=== PATIENT | male | born 1950 | race Caucasian/White ===

== ENCOUNTER 2018-03-29 15:39 | Inpatient (IN) ==
--- NOTE | 2018-03-29 15:55 | Urology History & Physical ---
Date of Encounter: 03/29/18 Time of Encounter: 15:52 Assessment and Plan (1) Hematuria Status: Acute 68-year-old man with a history of gross hematuria after a TURBT. He has an indwelling catheter. We will continue hand irrigation. Hold Coumadin today. I will closely follow his INR. We will maintain good hydration and hand irrigate the catheter as necessary. I will closely follow his blood counts and transfuse as necessary. Qualifiers: Hematuria type: gross Qualified Code(s): R31.0 - Gross hematuria (2) PE (pulmonary thromboembolism) Status: Acute We will hold Coumadin for now. History of Present Illness Chief complaint: hematuria HPI: Mr. Paez is a 68 year old male who was admitted for hematuria. He underwent a TURBT on 03/08/2018. He resumed his Coumadin. He has a history of PE. In the last 3 days he started no worsening hematuria. Today he had large blood clots and came to the urology clinic. I passed a 22-Polish catheter. A large amount of clot was irrigated out. Eventually, the urine did clear. He is still having some light pink colored urine, but no clot with irrigation as noted. He denies any lightheadedness or dizziness. Past Med Surg Social Fam HX - Past Medical History Medical history: non-contributory Psychiatric history: no psych history - Social History Smoking Status: Current every day smoker Smokeless Tobacco Status: No Alcohol use: occasionally Drug use: none Medications and Allergies Alendronate Sodium 70 mg PO MARTINEZ 05/24/16 [History] Atorvastatin Calcium [Lipitor] 20 mg PO HS 05/24/16 [History] Dapagliflozin Propanediol [Farxiga] 5 mg PO DAILY 05/24/16 [History] Folic Acid 1 mg PO DAILY 05/24/16 [History] Glimepiride [Amaryl] 4 mg PO BID 05/24/16 [History] SitaGLIPtin [Januvia] 100 mg PO DAILY 05/24/16 [History] Tamsulosin [Flomax] 0.4 mg PO DAILY 05/24/16 [History] metFORMIN [Glucophage] 1,000 mg PO BIDWM 05/24/16 [History] Cholecalciferol (D-3) [Vitamin D] 1,000 unit PO DAILY 03/08/18 [History] Docusate [Colace] 100 mg PO BID #60 capsule 03/08/18 [Rx] HYDROcodone/Acet 5/325 mg [[place] 5-325 mg] 1 tab PO Q4H PRN 4 Days #15 tab 03/08 [Rx] Multivitamin [One Daily Essential] 1 tab PO DAILY 03/08/18 [History] Warfarin [Coumadin] 7.5 mg PO SUTUTHSA 03/08/18 [History] Warfarin [Coumadin] 10 mg PO MOWEFR 03/08/18 [History] 3 Allergy/AdvReac Type Severity Reaction Status Date / Time No Known Allergies Allergy Verified 03/08/18 07:56 Review of Systems - Constitutional no chills, no fever(s) - EENT Nose, mouth and throat: no dizziness - Cardiovascular no chest pain - Respiratory no dyspnea - Gastrointestinal no nausea, no vomiting - Genitourinary hematuria, no flank pain - Musculoskeletal no back pain - Integumentary no erythema, no rash - Neurological no weakness - Psychiatric no suicidal ideation - Hematologic/Lymphatic no easy bleeding - Allergic/Immunologic no wheezing Exam - General physical appearance Present: well developed, well nourished, no distress - Eyes Absent: icteric - ENT Present: normal nares - Neck Present: trachea midline - Respiratory Present: normal respiratory effort - Cardiovascular Cardiovascular exam IM: RRR - Abdomen Abdomen: Present: soft - Genitourinary normal penis with no external lesions ([address] Cranberry colored urine is noted.) - Integumentary Present: no rash - Neurologic Present: normal coordination - Musculoskeletal Present: normal gait Urology Results - Labs All other labs normal.
[2018-03-29] MEDS ORDERED: Naloxone 0.4 MG/ML INJ IVP PRN ×2 (15:57)
[2018-03-29] MEDS ORDERED: *HR* HYDROcodone/Acet 5/325 mg TABLET PO PRN (15:57)
[2018-03-29] MEDS ORDERED: OXYCODONE Oral CONC 10 MG/0.5 ML ORAL.SYG SL PRN (15:57)
[2018-03-29] MEDS ORDERED: Acetaminophen 325 MG TABLET PO PRN (15:57)
[2018-03-29] MEDS ORDERED: Ondansetron 4 MG/2 ML VIAL IVP PRN (15:57)
[2018-03-29] MEDS ORDERED: D5% in Water 1,000 ML IVC PRN (16:05)
[2018-03-29] MEDS ORDERED: Dextrose Gel 15 GM/37.5 ML TUBE PO PRN ×2 (16:05)
[2018-03-29] MEDS ORDERED: *HR* Dextrose 50 % in Water (Syg) 50 ML SYRINGE IVP PRN (16:05)
[2018-03-29 17:13] LABS: Basophils # 0.1 K/mcL (0.0-0.2); Basophils % 0.3 %; Eosinophils % 0.1 %; Hematocrit 48.9 % (37.5-50.1); Hemoglobin 16.2 g/dL (12.9-16.9); Immature Granulocytes % 0.4 % (0-4); Lymphocytes # 1.3 K/mcL (0.6-4.6); Lymphocytes % 7.3 %; Mean Corpuscular HGB Conc 33.1 g/dL (31.6-35.5); Mean Corpuscular Hemoglobin 29.2 pg (28.0-33.3); Mean Corpuscular Volume 88.3 fL (83.0-100.0); Mean Platelet Volume 9.7 fL (9.4-12.4); Monocytes # 0.5 K/mcL (0.0-1.3); Monocytes % 2.5 %; Neutrophils # 16.2 K/mcL (1.6-8.9); Platelet Count 321 K/mcL (140-400); Red Blood Count 5.54 M/mcL (4.19-5.50); Red Cell Distribution Width 14.4 % (11.5-14.5); Segmented Neutrophils % 89.4 %
[2018-03-29 17:19] LABS: BUN/Creatinine Ratio 16 (6-26); Blood Urea Nitrogen 18 mg/dL (8-23); Calcium 9.9 mg/dL (8.6-10.3); Carbon Dioxide 25 mEq/L (23-29); Chloride 106 mEq/L (98-107); Glucose 194 mg/dL (70-105); Osmolality,Calculated 293 (280-300); Potassium 4.6 mEq/L (3.5-5.1); Sodium 138 mEq/L (136-145); eGFR For African Americans > 60 (> 60); eGFR For Non-African Americans > 60 (> 60)
[2018-03-29 17:22] LABS: INR 2.3; Prothrombin Time 25.7 Seconds (9.4-12.1)
[2018-03-29] MEDS: *HR* Metformin 500 MG TABLET PO SCH (17:47)
[2018-03-29] MEDS: 0.9 % Sodium Chloride 1,000 ML IVC SCH (17:47)
--- NOTE | 2018-03-29 20:13 | Internal Medicine Consult Note ---
Date of Encounter: 03/29/18 Time of Encounter: 20:08 - Assessment and plan (1) Anticoagulant long-term use Current Visit: Yes Status: Acute Assessment and plan: Patient with history of hypercoagulable state on long-term anticoagulation admitted with hematuria We will consult hematology oncology to assist in management (2) Diabetes 1.5, managed as type 2 Current Visit: Yes Status: Chronic Assessment and plan: Chronic we will resume home medication and place on sliding scale (3) HTN (hypertension) Current Visit: Yes Status: Chronic Assessment and plan: Chronic and relatively controlled Qualifiers: Hypertension type: essential hypertension Qualified Code(s): I10 - Essential (primary) hypertension (4) Leukocytosis (leucocytosis) Current Visit: Yes Status: Acute Assessment and plan: Leukocytosis was sent for UA and blood culture Qualifiers: Leukocytosis type: bandemia Qualified Code(s): D72.825 - Bandemia (5) Hematuria Current Visit: No Status: Acute Assessment and plan: Being managed by urology Qualifiers: Hematuria type: gross Qualified Code(s): R31.0 - Gross hematuria (6) PE (pulmonary thromboembolism) Current Visit: No Status: Acute Assessment and plan: Patient on long-term anticoagulation - Time Spent With Patient Total time spent is greater than 50% in coordination of care (as documented) at patient's floor/unit and/or counseling patient: Internal Medicine - CN: HPI - Data of Consult Consult date: 03/29/18 Requesting Physician: Khadar Trujillo, - Consult Narrative Reason for consult: medical management History of present illness: Mr. Paez is a 68 year old male Patient with history of hypertension, hypercoagulable state, on long-term Coumadin follows up routinely at Coumadin clinic. for Several years patient also have history of CVA, hypertension, UTI, diabetes and pulmonary embolism patient had a recent TURP 03/08/2018 and coumadin resumed and this time admitted due to hematuria 22F catheter has been placed with large amount of clots but now clearing up and being monitored by urology hospitalist services consult for medical management patient is not having any acute issue no chest pain no shortness of breath. INR today was 2.3 because of patient long-term anticoagulation being well known to oncology service will request a consult to oncology for Coumadin or anticoagulation options and management Past Med Surg Social Fam HX - Past Medical History Medical history: non-contributory, CVA, diabetes, hypertension, other Psychiatric history: no psych history - Social History Smoking Status: Current every day smoker Smokeless Tobacco Status: No Alcohol use: occasionally Drug use: none - Constitutional Constitutional: as per HPI - Respiratory Respiratory: as per HPI - Genitourinary Genitourinary ROS male: as per HPI Internal Medicine - CN: Meds Alendronate Sodium 70 mg PO MARTINEZ 05/24/16 [History] Atorvastatin Calcium [Lipitor] 20 mg PO HS 05/24/16 [History] Folic Acid 1 mg PO DAILY 05/24/16 [History] Glimepiride [Amaryl] 4 mg PO BID 05/24/16 [History] SitaGLIPtin [Januvia] 100 mg PO DAILY 05/24/16 [History] Tamsulosin [Flomax] 0.4 mg PO DAILY 05/24/16 [History] metFORMIN [Glucophage] 500 mg PO BID 05/24/16 [History] Cholecalciferol (D-3) [Vitamin D] 1,000 unit PO DAILY 03/08/18 [History] Docusate [Colace] 100 mg PO BID #60 capsule 03/08/18 [Rx] Multivitamin [One Daily Essential] 1 tab PO DAILY 03/08/18 [History] Warfarin [Coumadin] 7.5 mg PO SUTUWETHFRSA 03/08/18 [History] Warfarin [Coumadin] 10 mg PO MO 03/08/18 [History] Dapagliflozin Propanediol [Farxiga] 10 mg PO DAILY 03/29/18 [History] 3 Allergy/AdvReac Type Severity Reaction Status Date / Time No Known Allergies Allergy Verified 03/08/18 07:56 Internal Medicine - CN: Exam - Constitutional Vitals: Temp Pulse Resp BP Pulse Ox 98.0 F 77 14 148/77 95 03/29/18 19:15 03/29/18 19:15 03/29/18 19:15 03/29/18 19:15 03/29/18 19:15 General appearance IM: Present: A&O X 3 Internal Medicine - CN: Reslt - Labs CBC & Chem 7: 03/29/18 16:50 03/29/18 16:50 Labs: Short CBC 03/29/18 Range/Units 16:50 WBC 18.1 H (4.3-11.1) K/mcL Hgb 16.2 (12.9-16.9) g/dL Hct 48.9 (37.5-50.1) % Plt Count 321 (140-400) K/mcL Neutrophils # 16.2 H (1.6-8.9) K/mcL BMP 03/29/18 16:50 Sodium 138 Potassium 4.6 Chloride 106 Carbon Dioxide 25 BUN 18 Creatinine 1.15 Glucose 194 H Calcium 9.9 - ABG Interpretation ABG results: PT/INR, D-dimer PT 25.7 Seconds (9.4-12.1) H 03/29/18 16:50 Consult Discharge Plan - Plan Referrals: Rashmi Coppola MD [Primary Care Provider] -
[2018-03-29] MEDS: Insulin LISPRO 300 UNITS/3 ML VIAL SQ SCH (20:50)
[2018-03-29] MEDS: *HR* Glimepiride 4 MG TABLET PO SCH (23:46)
[2018-03-30] MEDS: 0.9 % Sodium Chloride 1,000 ML IVC SCH (00:13)
--- NOTE | 2018-03-30 06:53 | Discharge Summary ---
Orders not resulted at time of discharge: Pending orders 03/30/18 04:00 Basic Metabolic Panel AM 0400 Complete Blood Count [HEME] AM 0400 PT/INR [Prothrombin Time INR] [COAG] AM 0400 Date of Encounter: 03/30/18 Time of Encounter: 06:53 - Discharge Diagnosis (1) Hematuria Priority: Primary Status: Acute Comments: Gross hematuria has resolved. Qualifiers: Hematuria type: gross Qualified Code(s): R31.0 - Gross hematuria - Hospital Course Hospital course: Mr. Paez is a 68 year old male with history of gross hematuria in the urology office. Patient was brought in for observation for this gross hematuria. It resolved overnight with IV and by mouth hydration. Patient did have an elevated white count but did not have any fevers. No chills. Patient felt well and was ready to go home. Urine was slightly pink to clear in the morning. Time spent discussing smoking cessation with patient: 3 to 10 minutes - Time Spent with Patient Total time spent providing and/or coordinating discharge services: Less than 30 minutes Labs on day of discharge: Labs from last 24 hours 03/29/18 03/29/18 03/29/18 21:09 16:50 16:50 WBC RBC Hgb Hct MCV MCH MCHC RDW Plt Count MPV Immature Gran % Seg Neutrophils % Lymphocytes % Monocytes % Eosinophils % Basophils % Neutrophils # Lymphocytes # Monocytes # Eosinophils # Basophils # PT INR Sodium 138 Potassium 4.6 Chloride 106 Carbon Dioxide 25 BUN 18 Creatinine 1.15 Est GFR ( Amer) > 60 Est GFR (Non-Af Amer) > 60 BUN/Creatinine Ratio 16 Glucose 194 H POC Glucose 110 H Calculated Osmolality 293 Calcium 9.9 Blood Type B NEGATIVE Antibody Screen NEGATIVE 03/29/18 03/29/18 16:50 16:50 WBC 18.1 H RBC 5.54 H Hgb 16.2 Hct 48.9 MCV 88.3 MCH 29.2 MCHC 33.1 RDW 14.4 Plt Count 321 MPV 9.7 Immature Gran % 0.4 Seg Neutrophils % 89.4 Lymphocytes % 7.3 Monocytes % 2.5 Eosinophils % 0.1 Basophils % 0.3 Neutrophils # 16.2 H Lymphocytes # 1.3 Monocytes # 0.5 Eosinophils # 0.0 Basophils # 0.1 PT 25.7 H INR 2.3 Sodium Potassium Chloride Carbon Dioxide BUN Creatinine Est GFR ( Amer) Est GFR (Non-Af Amer) BUN/Creatinine Ratio Glucose POC Glucose Calculated Osmolality Calcium Blood Type Antibody Screen - Discharge Medications Prescriptions: Cephalexin [Keflex] 500 mg PO BID #10 capsule Home Medications: Alendronate Sodium 70 mg PO MARTINEZ 05/24/16 [History] Atorvastatin Calcium [Lipitor] 20 mg PO HS 05/24/16 [History] Folic Acid 1 mg PO DAILY 05/24/16 [History] Glimepiride [Amaryl] 4 mg PO BID 05/24/16 [History] SitaGLIPtin [Januvia] 100 mg PO DAILY 05/24/16 [History] Tamsulosin [Flomax] 0.4 mg PO DAILY 05/24/16 [History] metFORMIN [Glucophage] 500 mg PO BID 05/24/16 [History] Cholecalciferol (D-3) [Vitamin D] 1,000 unit PO DAILY 03/08/18 [History] Docusate [Colace] 100 mg PO BID #60 capsule 03/08/18 [Rx] Multivitamin [One Daily Essential] 1 tab PO DAILY 03/08/18 [History] Warfarin [Coumadin] 7.5 mg PO SUTUWETHFRSA 03/08/18 [History] Warfarin [Coumadin] 10 mg PO MO 03/08/18 [History] Dapagliflozin Propanediol [Farxiga] 10 mg PO DAILY 03/29/18 [History] Cephalexin [Keflex] 500 mg PO BID #10 capsule 03/30/18 [Rx] Allergies/Adverse Reactions: 3 Allergy/AdvReac Type Severity Reaction Status Date / Time No Known Allergies Allergy Verified 03/08/18 07:56 Date of admission: 03/29/18 16:02 Primary care physician: Rashmi Coppola MD Consults: 03/29/18 20:20 Consult to Oncology Hematology [CONS] Routine Consulting Provider: Luciano Lopez Reason for Consult: hypercougulable syndrome on chronic coumadin adm with hematuria Call Completed: No Discharging clinician: Mikey Merritt Anticipated date of discharge: 03/30/18 Exam Initial Vital Signs Temp Pulse Resp BP Pulse Ox 98.0 F 77 14 148/77 95 03/29/18 19:15 03/29/18 19:15 03/29/18 19:15 03/29/18 19:15 03/29/18 19:15 General/Neuological: alert and oriented x 3 Eyes: normal pupils, non-icteric Neck: no lymphadenopathy noted, supple to touch Cardiovascular: RRR, no murmurs Respiratory: normal respiratory effort, clear bilaterally ABD: soft, nontender, no masses palpated, good bowel sounds Back: no pain on percussion bilaterally : normal phallus, normal scrotum, testicles and epididymides normal, urethral meatus normal., Catheter with clear to slightly pink urine Skin: no rashes noted Musculoskeletall, FROMx4 - Patient Status Disposition: Home, Self-Care Condition: Good Functional capacity at discharge: independent ambulation Overall status at discharge: patient is progressing back to baseline - Discharge Instructions Follow Up With: Rashmi Coppola MD [Primary Care Provider] - Khadar Trujillo MD [Partnered Physician] - (next sunday ) Additional Instructions: Please catheter to either leg bag or larger bag per patient request. Patient can expect some blood in his urine as he moves around more. Call with any fever greater than 101.5. - Diet and Activity Activity: increase activity as tolerated Diet: advance to your usual diet
[2018-03-30 07:17] LABS: Basophils # 0.1 K/mcL (0.0-0.2); Basophils % 0.4 %; Eosinophils # 0.2 K/mcL (0.0-0.6); Eosinophils % 1.7 %; Hematocrit 38.7 % (37.5-50.1); Immature Granulocytes % 0.3 % (0-4); Lymphocytes # 2.4 K/mcL (0.6-4.6); Lymphocytes % 17.6 %; Mean Corpuscular HGB Conc 33.1 g/dL (31.6-35.5); Mean Corpuscular Hemoglobin 29.2 pg (28.0-33.3); Mean Corpuscular Volume 88.4 fL (83.0-100.0); Mean Platelet Volume 9.9 fL (9.4-12.4); Monocytes # 0.8 K/mcL (0.0-1.3); Neutrophils # 10.2 K/mcL (1.6-8.9); Platelet Count 238 K/mcL (140-400); Red Blood Count 4.38 M/mcL (4.19-5.50); Red Cell Distribution Width 14.5 % (11.5-14.5)
[2018-03-30 07:19] LABS: INR 1.9; Prothrombin Time 20.5 Seconds (9.4-12.1)
[2018-03-30 07:21] LABS: Hemoglobin 12.8 g/dL (12.9-16.9)
[2018-03-30 07:33] LABS: BUN/Creatinine Ratio 17 (6-26); Blood Urea Nitrogen 14 mg/dL (8-23); Carbon Dioxide 22 mEq/L (23-29); Chloride 110 mEq/L (98-107); Glucose 91 mg/dL (70-105); Osmolality,Calculated 284 (280-300); Potassium 4.2 mEq/L (3.5-5.1); Sodium 137 mEq/L (136-145); eGFR For African Americans > 60 (> 60); eGFR For Non-African Americans > 60 (> 60)
[2018-03-30 08:41] VITALS: BP 133/71
[2018-03-30] MEDS: Insulin LISPRO 300 UNITS/3 ML VIAL SQ SCH (08:51)
[2018-03-30] MEDS: *HR* Metformin 500 MG TABLET PO SCH (08:56)
[2018-03-30] MEDS: *HR* Glimepiride 4 MG TABLET PO SCH (08:57)
[2018-03-30] MEDS ORDERED: Cholecalciferol (D-3) 1,000 UNIT TABLET PO SCH (09:00)
[2018-03-30] MEDS ORDERED: (Dapagliflozin Propanediol [Farxiga] 5 MG) PO SCH (09:00)
[2018-03-30] MEDS ORDERED: Dapagliflozin Propanediol [Farxiga] 10 MG PO SCH (09:00)
[2018-03-30] MEDS ORDERED: *HR* SitaGLIPtin 100 MG TABLET PO SCH (09:00)
[2018-03-30] MEDS ORDERED: Folic Acid 1 MG TABLET PO SCH (09:00)
[2018-03-30] MEDS ORDERED: Multivit/Ca/Min/Fe/FA 1 TAB TABLET PO SCH (09:00)
[2018-03-31] MEDS ORDERED: NON-FORMULARY MEDICATION 1 EACH EACH (Alendronate Sodium [Alendronate Sodium] 70 MG) PO SCH (20:23)
== END 2018-03-30 10:53 | disposition home or self-care (01) | DRG 695 ==
LOC: 3ANU
PROVIDERS: ADMIT Urology; ATTEND Urology